=== PATIENT | female | born 1955 | race Caucasian/White ===

== ENCOUNTER 2019-08-05 08:07 | Emergency (ER) | payer MEDICARE, OTHER ==
[~2019-08-05] VITALS: Ht 167.6 cm; Wt 62.2 kg
[2019-08-05 08:09] VITALS: BP 106/60
--- NOTE | 2019-08-05 08:31 | NUR ---
PATIENT BROUGHT BACK FROM TRIAGE WITH FROM HOME. CHIEF COMPLAINT OF COUGH, RT SIDE CHEST PAIN, NASAL CONGESTION. SEEN AT [facility]RGENT [facility]ARE TUESDAY WITH ABX AND STEROIDS FOR PNEUMONIA. HOWEVER DUE TO WORSENING COUGH AND PAIN DECIDED ON EVALUATION AT [facility]. THE PATIENT IS ALERT, ORIENTED, WARM AND DRY. DENIES N/V, FEVER, RECENT TRAUMA.
[2019-08-05 08:57] LABS: BASOPHILS # (AUTO) 0.03 x10^3/uL (0-0.1); BASOPHILS % (AUTO) 0 % (0-1); EOSINOPHILS % (AUTO) 1 % (1-7); LYMPHOCYTES # (AUTO) 1.88 x10^3/uL (1-3.4); LYMPHOCYTES % (AUTO) 21 % (22-44); MD NO; MEAN CORPUSCULAR HEMOGLOBIN 34.4 pg (27.0-34.8); MEAN CORPUSCULAR HGB CONC 33.4 g/dL (32.4-35.8); MEAN PLATELET VOLUME 8.5 fL (7.4-10.4); MONOCYTES # (AUTO) 0.72 x10^3/uL (0.2-0.8); MONOCYTES % (AUTO) 8 % (2-9); NEUTROPHILS # (AUTO) 6.41 x10^3/uL (1.8-6.8); NEUTROPHILS % (AUTO) 70 % (42-75); PLATELET COUNT 249 x10^3/uL (130-400); RED BLOOD COUNT 4.07 x10^6/uL (3.82-5.3); RED CELL DISTRIBUTION WIDTH 14.4 % (9.6-15.2)
[2019-08-05 09:08] LABS: ALBUMIN 3.2 g/dL (3.4-5.0); ANION GAP 5 mmol/L (5-15); CHLORIDE 113 mmol/L (98-107); CREATININE 1.19 mg/dL (0.55-1.02)
[2019-08-05 09:11] LABS: TROPONIN I < 0.015 ng/mL (0.000-0.045)
[2019-08-05] MEDS ORDERED: KETOROLAC 30 MG/1 ML ONE (09:44)
--- NOTE | 2019-08-05 09:56 | NUR ---
DISCHARGE INSTRUCTIONS REVIEWED
[2019-08-05] MEDS ORDERED: KETOROLAC 30 MG/1 ML IM ONE (10:00)
== END 2019-08-05 10:17 | disposition home or self-care (01) ==
LOC: ED 08:41
DX: M94.0 Chondrocostal junction syndrome [Tietze] (principal); B34.9 Viral infection, unspecified; F17.210 Nicotine dependence, cigarettes, uncomplicated; Z90.710 Acquired absence of both cervix and uterus
CPT/HCPCS: 36415; 71046; 80048; 82040; 84484; 85025; 85379; 93005; 96372; 99284; J1885

== ENCOUNTER → 2020-08-21 | Outpatient (CLI) | payer MEDICARE, OTHER | END | disposition home or self-care (01) | LOC: RAD 10:02 | PROVIDERS: ATTEND Family Medicine | DX: Z12.2 Encounter for screening for malignant neoplasm of respiratory organs (principal); Z13.6 Encounter for screening for cardiovascular disorders; I70.0 Atherosclerosis of aorta; Z87.891 Personal history of nicotine dependence | CPT/HCPCS: 71271; 76706 ==